=== PATIENT | female | born 1995 | race Caucasian/White ===

== ENCOUNTER 2017-01-16 09:57 | Emergency (ER) | payer OTHER ==
[~2017-01-16] VITALS: Ht 165.1 cm; Wt 85.7 kg
[~2017-01-16 09:57] MED LIST: HYDR-971 PO
[2017-01-16 10:00] VITALS: BP 123/54
--- NOTE | 2017-01-16 10:46 | ED.ADGEN ---
Past History Past Medical History: Anxiety, Other Past Surgical History: No Surgical History Smoking: Non-smoker Alcohol Use: None Drug Use: None Adult General HPI HPI Patient is a 21-year-old female presents emergency department complaining of one -week history of sore throat. She has had associated congestion and rhinorrhea. She denies any fevers or chills. She is been using [id number] medications with moderate relief. Review of Systems Review of Systems Constitutional: Denies fever or chills [] Eyes: Denies change in visual acuity, redness, or eye pain [] HENT: Denies nasal congestion or sore throat [] Respiratory: Denies cough or shortness of breath [] Cardiovascular: No additional information not addressed in HPI [] GI: Denies abdominal pain, nausea, vomiting, bloody stools or diarrhea [] : Denies dysuria or hematuria [] Musculoskeletal: Denies back pain or joint pain [] Integument: Denies rash or skin lesions [] Neurologic: Denies headache, focal weakness or sensory changes [] Endocrine: Denies polyuria or polydipsia [] Allergies Allergies Allergies Coded Allergies Type Severity Reaction Last Updated Verified guaifenesin Allergy Severe Hives 02/23/16 Yes Physical Exam Physical Exam Constitutional: Well developed, well nourished, no acute distress, non-toxic appearance. [] HENT: Normocephalic, atraumatic, bilateral external ears normal, oropharynx moist, bilateral tonsils are erythematous with no oral exudates, nose normal. [] Eyes: PERRLA, EOMI, conjunctiva normal, no discharge. [] Neck: Normal range of motion, no tenderness, supple, no stridor. [] Cardiovascular:Heart rate regular rhythm, no murmur [] Lungs & Thorax: Bilateral breath sounds clear to auscultation [] Abdomen: Bowel sounds normal, soft, no tenderness, no masses, no pulsatile masses. [] Skin: Warm, dry, no erythema, no rash. [] Extremities: No tenderness, no cyanosis, no clubbing, ROM intact, no edema. [] Neurologic: Alert and oriented X 3, normal motor function, normal sensory function, no focal deficits noted. [] Psychologic: Affect normal, judgement normal, mood normal. [] Current Patient Data Vital Signs Vital Signs Date Time Temp Pulse Resp B/P Pulse Ox O2 Delivery O2 Flow Rate FiO2 01/16/17 10:00 98.4 18 18 98 Room Air EKG EKG [] Radiology/Procedures Radiology/Procedures [] Course & Med Decision Making Course & Med Decision Making Pertinent Labs and Imaging studies reviewed. (See chart for details) Negative rapid strep. Patient was instructed to continue with her supportive care follow-up with her doctor as needed. [] Final Impression Final Impression Pharyngitis [] Problems: Dragon Disclaimer Dragon Disclaimer This electronic medical record was generated, in whole or in part, using a voice recognition dictation system. BOBO HARRIS MD Jan 16, 2017 10:46
== END 2017-01-16 10:39 | disposition home or self-care (01) ==
LOC: ER 09:57
DX: J02.9 Acute pharyngitis, unspecified (principal); Z88.8 Allergy status to other drugs, medicaments and biological substances
CPT/HCPCS: 87070; 87880; 99283

== ENCOUNTER → 2017-04-09 | Outpatient (CLI) | payer OTHER ==
--- NOTE | 2017-04-09 13:53 | RAD ---
Indication right groin pain. Targeted ultrasound of the right groin was performed. There is modest adenopathy in the groin. Largest lymph node measures approximately 2.3 cm in greatest dimension. The morphologic appearance of the nodes is normal. IMPRESSION: Mild adenopathy right groin
== END | disposition home or self-care (01) ==
LOC: US 12:47
PROVIDERS: ATTEND Nurse Practitioner Family
DX: R59.1 Generalized enlarged lymph nodes (principal); R10.31 Right lower quadrant pain
CPT/HCPCS: 76881

== ENCOUNTER → 2017-05-29 | Outpatient (CLI) | payer OTHER ==
[2017-06-01 19:08] LABS: ALTERNARIA 0.11 kU/L (Class 0/I); ASH <0.10 kU/L (Class 0); ASPERGILLUS 0.16 kU/L (Class 0/I); BARLEY 0.12 kU/L (Class 0/I); BERMUDA <0.10 kU/L (Class 0); CASHEW 0.34 kU/L (Class I); CAT DANDER 0.13 kU/L (Class 0/I); CHICKEN 0.13 kU/L (Class 0/I); CHOCOLATE <0.10 kU/L (Class 0); CLADOSPORIUM 0.13 kU/L (Class 0/I); COCKROACH 0.13 kU/L (Class 0/I); CODFISH <0.10 kU/L (Class 0); CORN <0.10 kU/L (Class 0); DUST MITE 0.11 kU/L (Class 0/I); EGG WHITE 0.44 kU/L (Class I); MAPLE 0.87 kU/L (Class II); MILK 0.15 kU/L (Class 0/I); MOUNTAIN CEDAR <0.10 kU/L (Class 0); MULBERRY <0.10 kU/L (Class 0); NETTLE <0.10 kU/L (Class 0); OAK TREE <0.10 kU/L (Class 0); OAT <0.10 kU/L (Class 0); ORANGE <0.10 kU/L (Class 0); PEANUT <0.10 kU/L (Class 0); PENICILLIUM 0.11 kU/L (Class 0/I); PORK IGE <0.10 kU/L (Class 0); POTATO <0.10 kU/L (Class 0); RAST IGE 410 IU/mL (0-100); RUSSIAN THISTLE 0.11 kU/L (Class 0/I); SHEEP SORREL <0.10 kU/L (Class 0); SHORT RAGWEED <0.10 kU/L (Class 0); SHRIMP <0.10 kU/L (Class 0); SOYBEAN <0.10 kU/L (Class 0); TIMOTHY GRASS <0.10 kU/L (Class 0); TOMATO 3.46 kU/L (Class III); WALNUT <0.10 kU/L (Class 0); WHEAT 0.11 kU/L (Class 0/I); YEAST 0.22 kU/L (Class 0/I)
== END ==
LOC: LAB 09:44
PROVIDERS: ATTEND Nurse Practitioner Family
DX: L20.9 Atopic dermatitis, unspecified (principal)
CPT/HCPCS: 36415; 82784; 86001

== ENCOUNTER 2017-09-25 08:14 | Emergency (ER) | payer OTHER ==
[2017-09-25 08:20] VITALS: BP 140/62
--- NOTE | 2017-09-25 08:57 | PHYS DOC ---
Past History Past Medical History: Other Past Surgical History: No Surgical History Smoking: Non-smoker Alcohol Use: Occasionally Drug Use: None Adult General Chief Complaint Chief Complaint: COUGH HPI HPI Patient is a 22 year old F who presents with cough and nasal congestion. Estee states that her symptoms aren't present over the past 2-3 days. She describes her symptoms as gradual in onset and currently constant. She denies fever sweats or chills. She denies shortness of breath. She denies any other associated symptoms. Review of Systems Review of Systems Constitutional: Denies fever or chills [] Eyes: Denies change in visual acuity, redness, or eye pain [] HENT: Negative except history of present illness Respiratory: Denies cough or shortness of breath [] Cardiovascular: No additional information not addressed in HPI [] GI: Denies abdominal pain, nausea, vomiting, bloody stools or diarrhea [] : Denies dysuria or hematuria [] Musculoskeletal: Denies back pain or joint pain [] Integument: Denies rash or skin lesions [] Neurologic: Denies headache, focal weakness or sensory changes [] Endocrine: Denies polyuria or polydipsia [] All other systems were reviewed and found to be within normal limits, except as documented in this note. Family History Family History No pertinent family history reported Current Medications Current Medications Medications were reviewed Allergies Allergies Allergies Coded Allergies Type Severity Reaction Last Updated Verified guaifenesin Allergy Severe Hives 02/23/16 Yes Physical Exam Physical Exam Constitutional: Well developed, well nourished, no acute distress, non-toxic appearance. [] HENT: Normocephalic, atraumatic, bilateral external ears normal, oropharynx moist, no oral exudates, mild nasal turbinate edema with mild mucous noted in bilateral nares Eyes: EOMI, conjunctiva normal, no discharge. [] Neck: Normal range of motion, no tenderness, supple, no stridor. [] Cardiovascular:Heart rate regular rhythm, Lungs & Thorax: Bilateral breath sounds clear to auscultation [] Abdomen: Bowel sounds normal, soft, no tenderness, no masses, no pulsatile masses. [] Skin: Warm, dry, no erythema, no rash. [] Back: No tenderness, no CVA tenderness. [] Extremities: No tenderness, no cyanosis, no clubbing, ROM intact, no edema. [] Neurologic: Alert and oriented X 3, normal motor function, normal sensory function, no focal deficits noted. [] Psychologic: Affect normal, judgement normal, mood normal. [] Current Patient Data Vital Signs Vital Signs Date Time Temp Pulse Resp B/P (MAP) Pulse Ox O2 Delivery O2 Flow Rate FiO2 09/25/17 08:20 98.8 90 16 98 Room Air EKG EKG [] Radiology/Procedures Radiology/Procedures [] Course & Med Decision Making Course & Med Decision Making Pertinent Labs and Imaging studies reviewed. (See chart for details) [] Dragon Disclaimer Dragon Disclaimer This electronic medical record was generated, in whole or in part, using a voice recognition dictation system. Departure Departure: Impression: Primary Impression: Upper respiratory infection Disposition: HOME, SELF-CARE Condition: STABLE Referrals: SHERYL BROOKS APRN (PCP) Patient Instructions: Upper Respiratory Infection, Adult Additional Instructions: Estee was seen in the emergency department for cough and congestion. No emergency medical condition was found on history or physical exam. Her symptoms are most consistent with an upper respiratory infection. She is advised to use nasal saline rinses regularly and nasal steroid spray. She is advised follow- up with her primary care doctor in the next week for further management. Problem Qualifiers Primary Impression: Upper respiratory infection URI type: unspecified viral URI Qualified Codes: J06.9 - Acute upper respiratory infection, unspecified; B97.89 - Other viral agents as the cause of diseases classified elsewhere KEITH GOMEZ MD Sep 25, 2017 08:57
== END 2017-09-25 09:00 | disposition home or self-care (01) ==
LOC: ER 08:14
DX: J06.9 Acute upper respiratory infection, unspecified (principal); Z88.8 Allergy status to other drugs, medicaments and biological substances
CPT/HCPCS: 99281

== ENCOUNTER → 2017-10-17 | Outpatient (CLI) | payer OTHER ==
[2017-09-25 08:20] VITALS: BP 140/62
--- NOTE | 2017-10-17 14:42 | RAD ---
Exam: Right calcaneus radiograph 10/17/2017 Indication: Brachial pain for one month Comparison: None available Technique: 3 views of the right calcaneus are provided. Findings: There is no acute fracture or dislocation. No joint space narrowing. No soft tissue swelling. No osseous erosion or soft tissue gas. Bone mineralization is within normal limits. Impression: No acute fracture or dislocation.
== END | disposition home or self-care (01) ==
LOC: RAD 14:07
PROVIDERS: ATTEND Nurse Practitioner Family
DX: M79.671 Pain in right foot (principal)
CPT/HCPCS: 73650

== ENCOUNTER 2018-02-15 23:03 | Emergency (ER) | payer OTHER ==
[~2018-02-15] VITALS: Ht 165.1 cm; Wt 86.2 kg
--- NOTE | 2018-02-15 23:17 | ED.ADGEN ---
Past History Past Medical History: Other Past Surgical History: No Surgical History Smoking: Non-smoker Alcohol Use: Occasionally Drug Use: None Adult General Chief Complaint Chief Complaint " I felt this morning.. and hurt this shoulder.. and it been hurting all day... " HPI HPI Patient is a 22 year old female who presents with Rt. shoulder pain after fall on stairs. Pt. localizes pain in right shoulder blade , ac, deltoid area. Does have deltoid sensation. Distal neurovascular intact. Range of motion somewhat limited due to pain. Does have a large area of ecchymosis on posterior shoulder. No other injuries reported. Patient reports she is normally healthy. Patient is right-hand dominant Review of Systems Review of Systems Constitutional: Denies fever or chills [] Eyes: Denies change in visual acuity, redness, or eye pain [] HENT: Denies nasal congestion or sore throat [] Respiratory: Denies cough or shortness of breath [] Cardiovascular: No additional information not addressed in HPI [] GI: Denies abdominal pain, nausea, vomiting, bloody stools or diarrhea [] : Denies dysuria or hematuria [] Musculoskeletal: Denies back pain or joint pain []complaints of right shoulder pain Integument: Denies rash or skin lesions [] Neurologic: Denies headache, focal weakness or sensory changes [] Endocrine: Denies polyuria or polydipsia [] All other systems were reviewed and found to be within normal limits, except as documented in this note. Family History Family History Noncontributory Current Medications Current Medications See nursing for home meds Allergies Allergies Allergies Coded Allergies Type Severity Reaction Last Updated Verified guaifenesin Allergy Severe Hives 02/23/16 Yes Physical Exam Physical Exam Constitutional: Moderately acute distress, non-toxic appearance. [] HENT: Normocephalic, atraumatic, bilateral external ears normal, oropharynx moist, no oral exudates, nose normal. [] Eyes: PERRLA, EOMI, conjunctiva normal, no discharge. [] Neck: Normal range of motion, no tenderness, supple, no stridor. [] Cardiovascular:Heart rate regular rhythm, no murmur [] Lungs & Thorax: Bilateral breath sounds equal at apex on auscultation [] Abdomen: Bowel sounds normal, soft, no tenderness, no masses, no pulsatile masses. [] Obese Skin: Warm, dry, no erythema, no rash. [] Ecchymosis back in right shoulder Back: No tenderness, no CVA tenderness. [] Extremities: No tenderness, no cyanosis, no clubbing, ROM intact, no edema. [] Except findings in right shoulder Neurologic: Alert and oriented X 3, normal motor function, normal sensory function, no focal deficits noted. [] Psychologic: Affect anxious, judgement normal, mood normal. [] Current Patient Data Vital Signs Vital Signs Date Time Temp Pulse Resp B/P (MAP) Pulse Ox O2 Delivery O2 Flow Rate FiO2 02/16/18 00:30 90 16 137/79 (98) 99 Room Air 02/15/18 23:03 97.9 EKG EKG [] Radiology/Procedures Radiology/Procedures My interpretation of shoulder film shows obvious fracture dislocation. My interpretation chest x-ray shows no obvious fracture. No findings of pneumothorax.[] Course & Med Decision Making Course & Med Decision Making Pertinent Labs and Imaging studies reviewed. (See chart for details). Patient use ice packs when necessary. Wear sling. Take arm out of sling 4 times a day and do passive range of motion. After 3 days may start advancing range of motion in shoulder. Take Tylenol and ibuprofen for pain. May take Vicoprofen up 4 times a day for marked pain. Follow-up primary care. Consider follow-up orthopedics. Return if any concerns. [] Final Impression Final Impression 1. Rotator cuff injury 2. Contusion[] Problems: Dragon Disclaimer Dragon Disclaimer This electronic medical record was generated, in whole or in part, using a voice recognition dictation system. NABOR COOK MD Feb 15, 2018 23:17
[2018-02-16] MEDS ORDERED: HYDR-79 PO (00:13)
[2018-02-16 00:30] VITALS: BP 137/79
--- NOTE | 2018-02-16 08:09 | RAD ---
Chest, 2 views, 02/15/2018: History: Fall, upper chest and right shoulder pain The heart size and pulmonary vascularity are normal. No pulmonary infiltrates are seen. There is no evidence of pleural fluid or pneumothorax. IMPRESSION: No acute cardiopulmonary abnormality is detected. Right shoulder, 3 views, 02/15/2018: No fracture or dislocation is identified. The periarticular soft tissues are unremarkable. IMPRESSION: No acute right shoulder abnormality is detected.
== END 2018-02-16 00:33 | disposition home or self-care (01) ==
LOC: ER 23:03
DX: S46.091A Other injury of muscle(s) and tendon(s) of the rotator cuff of right shoulder, initial encounter (principal); Z88.8 Allergy status to other drugs, medicaments and biological substances; W10.8XXA Fall (on) (from) other stairs and steps, initial encounter; Y93.89 Activity, other specified; Y99.8 Other external cause status; Y92.89 Other specified places as the place of occurrence of the external cause
CPT/HCPCS: 71046; 73030; 99284

== ENCOUNTER 2019-05-24 16:19 | Emergency (ER) | payer OTHER ==
[~2019-05-24] VITALS: Ht 165.1 cm; Wt 97.5 kg
[~2019-05-24 16:19] MED LIST changes: +HYDR-1179 PO; +HYDR-3165 PO; -HYDR-971 PO
[2019-05-24 16:29] VITALS: BP 143/106
[2019-05-24] MEDS ORDERED: ACETAMINOPHEN 500 MG TABLET PO ONE (17:00)
[2019-05-24] MEDS ORDERED: ORPHENADRINE CITRATE 60 MG/2 ML VIAL. IM ONE (17:30)
[2019-05-24] MEDS ORDERED: KETOROLAC 60 MG/2 ML VIAL. IM ONE (17:30)
[2019-05-24] MEDS ORDERED: NAPR-683 PO (17:41)
[2019-05-24] MEDS ORDERED: CYCL-331 PO (17:41)
--- NOTE | 2019-05-24 17:42 | ED.ADGEN ---
Past History Past Medical History: No Pertinent History Past Surgical History: Other Smoking: Non-smoker Alcohol Use: Occasionally Drug Use: None Adult General Chief Complaint Chief Complaint Back pain HPI HPI Patient is a 23 year old female who presents with complaint of back pain. The patient states that she injured her back earlier this morning while lifting. She states that she was doing a squat exercises when she felt a pull in her low back. States that she is having pain and tightness on the left side of her lower back. States that this radiates towards the outer aspect of her left thigh. Denies pain or loss of feeling below the knee. When asked if she had any similar problems with her back in the past, the patient states "no." Of note on chart review, the patient was seen in the emergency department on October 19, 2016 for low back strain. At that time she also noted that she injured her low back while doing a squatting exercises at the gym. Patient was notified of this, then stated that she remembered that she may have hurt her back in the past. Denies any loss of bowel or bladder control, saddle last seizure, or foot drop. States that she took ibuprofen this morning with mild relief. Review of Systems Review of Systems Constitutional: Denies fever or chills [] Eyes: Denies change in visual acuity, redness, or eye pain [] HENT: Denies nasal congestion or sore throat [] Respiratory: Denies cough or shortness of breath [] Cardiovascular: Denies chest pain or edema[] GI: Denies abdominal pain, nausea, vomiting, bloody stools or diarrhea [] : Denies dysuria or hematuria [] Musculoskeletal: Back pain[] Integument: Denies rash or skin lesions [] Neurologic: Denies headache, focal weakness or sensory changes [] All other systems were reviewed and found to be within normal limits, except as documented in this note. Current Medications Current Medications Current Medications Medications (Trade) Dose Ordered Sig/Ilana Start Time Stop Time Status Last Admin Dose Admin Acetaminophen (Tylenol) 1,000 mg 1X ONCE 05/24/19 17:00 05/24/19 17:01 DC 05/24/19 17:14 1,000 MG Ketorolac Tromethamine (Toradol Im) 60 mg 1X ONCE 05/24/19 17:30 05/24/19 17:31 UNV Orphenadrine Citrate (Norflex) 60 mg 1X ONCE 05/24/19 17:30 05/24/19 17:31 UNV Allergies Allergies Allergies Coded Allergies Type Severity Reaction Last Updated Verified guaifenesin Allergy Severe Hives 02/23/16 Yes Penicillins Allergy Unknown 05/24/19 Yes Physical Exam Physical Exam Constitutional: Well developed, well nourished, no acute distress, non-toxic appearance. [] HENT: Normocephalic, atraumatic, bilateral external ears normal, oropharynx m oist, no oral exudates, nose normal. [] Eyes: PERRLA, EOMI, conjunctiva normal, no discharge. [] Neck: Normal range of motion, no tenderness, supple, no stridor. [] Cardiovascular:Heart rate regular rhythm, no murmur [] Lungs & Thorax: Bilateral breath sounds clear to auscultation [] Abdomen: Bowel sounds normal, soft, no tenderness, no masses, no pulsatile masses. [] Skin: Warm, dry, no erythema, no rash. [] Back: Lower lumbar paraspinous muscle tenderness along the left side of the low back, no midline tenderness, negative straight leg test, no CVA tenderness. [] Extremities: No tenderness, no cyanosis, no clubbing, ROM intact, no edema. [] Neurologic: Alert and oriented X 3, normal motor function, normal sensory function, no focal deficits noted. [] Current Patient Data Vital Signs Vital Signs Date Time Temp Pulse Resp B/P (MAP) Pulse Ox O2 Delivery O2 Flow Rate FiO2 05/24/19 16:29 97.9 83 16 97 Room Air Lab Results Laboratory Tests Test 05/24/19 17:06 POC Urine HCG, Qualitative hcg negative (Negative) EKG EKG Not performed[] Radiology/Procedures Radiology/Procedures Not performed[] Course & Med Decision Making Course & Med Decision Making Pertinent Labs and Imaging studies reviewed. (See chart for details) [] Final Impression Final Impression Patient displays no midline tenderness on exam. Given low mechanism of injury, spinal fracture is unlikely. X-rays not indicated at today's visit. The patient was treated with Tylenol, Norflex, and Toradol. Patient will be discharged with Flexeril and Naprosyn for continued outpatient therapy. Advised follow-up with primary doctor in the next 5 days for reevaluation and return to emergency department for any worsening symptoms per the patient was understanding and in agreement with treatment plan.[] Dragon Disclaimer Dragon Disclaimer This electronic medical record was generated, in whole or in part, using a voice recognition dictation system. Departure Departure: Impression: Primary Impression: Low back strain Qualified Codes: S39.012A - Strain of muscle, fascia and tendon of lower back, initial encounter Disposition: HOME, SELF-CARE Condition: IMPROVED Patient Instructions: Back Pain, Adult Additional Instructions: Follow-up with your primary doctor in the next 5-7 days for reevaluation. Return to the emergency department for any worsening symptoms. Scripts Naproxen (NAPROSYN) 500 Mg Tablet 1 TAB PO BID, #20 TAB 0 Refills Prov: MARGARET JARRELL MD 05/24/19 Cyclobenzaprine Hcl (CYCLOBENZAPRINE HCL) 10 Mg Tablet 1 TAB PO TID PRN for MUSCLE SPASMS, #30 TAB Prov: MARGARET JARRELL MD 05/24/19 MARGARET JARRELL MD May 24, 2019 17:42
== END 2019-05-24 17:52 | disposition home or self-care (01) ==
LOC: ER 16:19
DX: S39.012A Strain of muscle, fascia and tendon of lower back, initial encounter (principal); Z88.0 Allergy status to penicillin; Z88.8 Allergy status to other drugs, medicaments and biological substances; X50.9XXA Other and unspecified overexertion or strenuous movements or postures, initial encounter; Y93.B9 Activity, other involving muscle strengthening exercises; Y92.89 Other specified places as the place of occurrence of the external cause; Y99.8 Other external cause status
CPT/HCPCS: 81025; 96372; 99284; J1885; J2360

== ENCOUNTER 2019-11-26 19:44 | Emergency (ER) | payer SELFPAY ==
[~2019-11-26] VITALS: Ht 165.1 cm; Wt 95.5 kg
[~2019-11-26 19:44] MED LIST changes: +CYCL-331 PO; +NAPR-683 PO
[2019-11-26 19:46] VITALS: BP 134/83
--- NOTE | 2019-11-26 19:51 | PHYS DOC ---
Past History Past Medical History: No Pertinent History Past Surgical History: Other Smoking: Non-smoker Alcohol Use: Occasionally Drug Use: None Adult General Chief Complaint Chief Complaint: COUGH".. I ve been sick since last thursday.. the coughing will not quit.. he kicked me out of bed because he can't sleep.. I did get my flu shot this year..." HPI HPI Patient is a 24 year old female who presents with above hx and complaints of fe daniella, malaise, cough,.. Myalgia, arthralgia,.Patient normally healthy. Patient up-to-date with vaccinations. No recent travel. No specific ill contacts. Patient reports she is normally healthy. Follows with Dr. Carrion. Review of Systems Review of Systems Constitutional: History of fever or chills [] Eyes: Denies change in visual acuity, redness, or eye pain [] HENT: History of nasal congestion and sore throat [] Respiratory: History of nonproductive cough Cardiovascular: No additional information not addressed in HPI [] GI: Denies abdominal pain, nausea, vomiting, bloody stools or diarrhea [] : Denies dysuria or hematuria [] Musculoskeletal: Denies back pain or joint pain [] Integument: Denies rash or skin lesions [] Neurologic: Denies headache, focal weakness or sensory changes [] Endocrine: Denies polyuria or polydipsia [] All other systems were reviewed and found to be within normal limits, except as documented in this note. Family History Family History Noncontributory Current Medications Current Medications See nursing for home meds Allergies Allergies Allergies Coded Allergies Type Severity Reaction Last Updated Verified guaifenesin Allergy Severe Hives 02/23/16 Yes Penicillins Allergy Unknown 05/24/19 Yes Physical Exam Physical Exam Constitutional: Moderate acute distress, non-toxic appearance. [] HENT: Normocephalic, atraumatic, bilateral external ears normal, oropharynx moist, injected pharynx, no oral exudates, nose swollen turbinates and clear rhinorrhea] Eyes: PERRLA, EOMI, conjunctiva normal, no discharge. [] Neck: Normal range of motion, no tenderness, supple, no stridor. [] Cardiovascular:Heart rate regular rhythm, no murmur [] Lungs & Thorax: Bilateral breath sounds equal at apexes few scattered wheezes on auscultation [] Abdomen: Bowel sounds normal, soft, no tenderness, no masses, no pulsatile masses. [] Skin: Warm, dry, no erythema, no rash. [] Back: No tenderness, no CVA tenderness. [] Extremities: No tenderness, no cyanosis, no clubbing, ROM intact, no edema. [] No cording appreciated Neurologic: Alert and oriented X 3, normal motor function, normal sensory function, no focal deficits noted. [] Psychologic: Affect anxious, judgement normal, mood normal. [] EKG EKG [][place] [address] IMAGING REPORT Signed PATIENT: ISA FLORES ACCOUNT: [id number] : 1995 LOCATION: ER AGE: 24 SEX: F EXAM STATUS: REG ER ORD. PHYSICIAN: NABOR COOK MD REASON: cough PROCEDURE: CHEST PA & LATERAL Exam: Chest 2 views INDICATION: Cough TECHNIQUE: Frontal and lateral views the chest Comparisons: None FINDINGS: The cardiomediastinal silhouette and pulmonary vessels are within normal limits. The lung and pleural spaces are clear. IMPRESSION: No acute cardiopulmonary process. Electronically signed by: Matilda Davalos MD (11/26/2019 8:45 PM) [id number] DICTATED AND SIGNED BY: MATILDA DAVALOS MD DATE: 11/26/192044 CC: NABOR COOK MD; SHERYL BROOKS APRN ~ Radiology/Procedures Radiology/Procedures [][address] [address] IMAGING REPORT Signed PATIENT: ISA FLORES ACCOUNT: [id number] : 1995 LOCATION: ER AGE: 24 SEX: F EXAM STATUS: REG ER ORD. PHYSICIAN: NABOR COOK MD REASON: cough PROCEDURE: CHEST PA & LATERAL Exam: Chest 2 views INDICATION: Cough TECHNIQUE: Frontal and lateral views the chest Comparisons: None FINDINGS: The cardiomediastinal silhouette and pulmonary vessels are within normal limits. The lung and pleural spaces are clear. IMPRESSION: No acute cardiopulmonary process. Electronically signed by: Matilda Davalos MD (11/26/2019 8:45 PM) [id number] DICTATED AND SIGNED BY: MATILDA DAVALOS MD DATE: 11/26/192044 CC: NABOR COOK MD; SHERYL BROOKS APRN ~ Course & Med Decision Making Course & Med Decision Making Pertinent Labs and Imaging studies reviewed. (See chart for details) Continue push fluids. I rest. Tylenol and ibuprofen for discomfort. Prednisone 50 mg a day. Use MDI 2 puffs 4 times a day. Benadryl 50 mg up 4 times a day for active cough and drainage. Follow-up primary care. Return if any concerns. Impression: 1. Viral syndrome 2. Bronchitis [] Dragon Disclaimer Dragon Disclaimer This electronic medical record was generated, in whole or in part, using a voice recognition dictation system. Departure Departure: Disposition: 01 HOME/RESIDENCE PRIOR TO ADM Condition: STABLE Referrals: SHERYL BROOKS APRN (PCP) Scripts Prednisone (PREDNISONE) 50 Mg Tablet 50 MG PO DAILY for cough, reactive airway for 5 Days, #5 TAB Prov: NABOR COOK MD 11/26/19 Dragon Disclaimer This chart was dictated in whole or in part using Voice Recognition software in a busy, high-work load, and often noisy Emergency Department environment. It may contain unintended and wholly unrecognized errors or omissions. NABOR COOK MD Nov 26, 2019 19:50
[2019-11-26] MEDS: predniSONE 10 MG TABLET PO ONE ×2 (20:00→21:33)
[2019-11-26] MEDS ORDERED: ALBUTEROL SULFATE 8GM INHALER. INH ONE (20:00)
--- NOTE | 2019-11-26 20:48 | RAD ---
Exam: Chest 2 views INDICATION: Cough TECHNIQUE: Frontal and lateral views the chest Comparisons: None FINDINGS: The cardiomediastinal silhouette and pulmonary vessels are within normal limits. The lung and pleural spaces are clear. IMPRESSION: No acute cardiopulmonary process. Electronically signed by: Matilda Dejesus MD (11/26/2019 8:45 PM) [id number]
[2019-11-26 20:52] LABS: INFLUENZA A PATIENT NEGATIVE (NEGATIVE)
[2019-11-26 20:53] LABS: INFLUENZA B PATIENT NEGATIVE (NEGATIVE)
[2019-11-26] MEDS ORDERED: PRED50TA PO (21:04)
[2019-11-26 21:33] LABS: BARBITURATES NEG (NEG); BENZODIAZEPINES NEG (NEG); CANNABINOIDS NEG (NEG); COCAINE NEG (NEG); METHADONE NEG (NEG); OPIATES NEG (NEG); PHENCYCLIDINE NEG (NEG)
[2019-11-26 21:36] LABS: AMPHETAMINE/METHAMPHETAMINE NEG (NEG)
[2019-11-26 21:51] LABS: BILIRUBIN,URINE NEG (NEG); CLARITY,URINE CLEAR; COLOR,URINE YELLOW; GLUCOSE,URINE NEG (NEG); NITRITE,URINE NEG (NEG); UROBILINOGEN,URINE 0.2 mg/dL (0.2 mg/dL)
[2019-11-26 21:52] LABS: BACTERIA,URINE FEW /HPF (0-FEW); RBC,URINE OCC /HPF (0-2); SQUAMOUS EPITHELIAL CELL,UR OCC /LPF; WBC,URINE OCC /HPF (0-4)
== END 2019-11-26 21:35 | disposition home or self-care (01) ==
LOC: ER 19:44
DX: B34.9 Viral infection, unspecified (principal); J40 Bronchitis, not specified as acute or chronic; Z88.0 Allergy status to penicillin; Z88.8 Allergy status to other drugs, medicaments and biological substances
CPT/HCPCS: 36415; 71046; 80307; 81001; 81025; 87070; 87804; 87880; 99285; J7512; J7613

== ENCOUNTER 2019-12-04 21:12 | Emergency (ER) | payer OTHER ==
[~2019-12-04] VITALS: Ht 165.1 cm; Wt 101.3 kg
[~2019-12-04 21:12] MED LIST changes: +PRED50TA PO
--- NOTE | 2019-12-04 21:51 | PHYS DOC ---
Past History Past Medical History: No Pertinent History Past Surgical History: Other Smoking: Non-smoker Alcohol Use: Occasionally Drug Use: None Adult General Chief Complaint Chief Complaint: ".. I ve been coughing non-stop.. I was here last sat... and started me on inhaler... and I seen my primary... 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 Patient reports persistent nonproductive cough. Patient seen previously on Thursday and started on prednisone and MDI. Patient did follow up with her primary Vanesarenee. She denies any recent travel or history immunosuppression. Is in contact with sick patients. She did get flu vaccination this season. Review of Systems Review of Systems Constitutional: History of fever or chills [] Eyes: Denies change in visual acuity, redness, or eye pain [] HENT: History of nasal congestion and sore throat [] Respiratory: History cough Cardiovascular: No additional information not addressed in HPI [] GI: Denies abdominal pain, nausea, vomiting, bloody stools or diarrhea [] : Denies dysuria or hematuria [] Musculoskeletal: Denies back pain or joint pain [] Integument: Denies rash or skin lesions [] Neurologic: Denies headache, focal weakness or sensory changes [] Endocrine: Denies polyuria or polydipsia [] All other systems were reviewed and found to be within normal limits, except as documented in this note. Family History Family History Noncontributory to presentation Current Medications Current Medications See nursing for home meds Allergies Allergies Allergies Coded Allergies Type Severity Reaction Last Updated Verified guaifenesin Allergy Severe Hives 02/23/16 Yes Penicillins Allergy Unknown 05/24/19 Yes Physical Exam Physical Exam Constitutional: Mild distress, non-toxic appearance. [] HENT: Normocephalic, atraumatic, bilateral external ears normal, oropharynx moist,with drainage and mild pharyngeal erythema, no oral exudates, nose swollen turbinates and clear rhinorrhea Eyes: PERRLA, EOMI, conjunctiva normal, no discharge. [] Neck: Normal range of motion, no tenderness, supple, no stridor. [] Cardiovascular:Heart rate regular rhythm, no murmur [] Lungs & Thorax: Bilateral breath sounds equal apex with scattered wheezes on auscultation [] Abdomen: Bowel sounds normal, soft, no tenderness, no masses, no pulsatile masses. Obese. Skin: Warm, dry, no erythema, no rash. [] Back: No tenderness, no CVA tenderness. [] Extremities: No tenderness, no cyanosis, no clubbing, ROM intact, no edema. [] No cording appreciated Neurologic: Alert and oriented X 3, normal motor function, normal sensory function, no focal deficits noted. [] Psychologic: Affect anxious, judgement normal, mood normal. [] EKG EKG [] Radiology/Procedures Radiology/Procedures My interpretation chest x-ray showssignificant pulmonary infiltrate or acute cardiopulmonary findings.[] Course & Med Decision Making Course & Med Decision Making Pertinent Labs and Imaging studies reviewed. (See chart for details) Patient take prednisone 50 mg a day for 5 days. Use MDI 2 puffs 4 times a day. Take Tylenol and ibuprofen for discomfort. Zofran 8 mg up to 4 times a day for active nausea and vomiting. Patient follow-up primary care. Patient return of any concerns. Continue MDI and Prednisone as directed. 1. Viral Syndrome 2. Viral Bronchitis [] Dragon Disclaimer Dragon Disclaimer This electronic medical record was generated, in whole or in part, using a voice recognition dictation system. Departure Departure: Disposition: 01 HOME/RESIDENCE PRIOR TO ADM Condition: STABLE Referrals: SHERYL BROOKS APRN (PCP) Scripts Ondansetron Hcl (ZOFRAN) 8 Mg Tablet 8 MG PO QIDPRN PRN for nv, #30 BOTTLE Prov: NABOR COOK MD 12/05/19 Prednisone (PREDNISONE) 50 Mg Tablet 50 MG PO DAILY for bronchitis for 5 Days, #5 TAB Prov: NABOR COOK MD 12/05/19 Sima Disclaimer This chart was dictated in whole or in part using Voice Recognition software in a busy, high-work load, and often noisy Emergency Department environment. It may contain unintended and wholly unrecognized errors or omissions. NABOR COOK MD Dec 04, 2019 21:51
[2019-12-04] MEDS ORDERED: ALBUTEROL SULFATE 8GM INHALER. INH ONE (22:00)
[2019-12-04] MEDS ORDERED: predniSONE 10 MG TABLET PO ONE (22:00)
[2019-12-04 23:19] LABS: BARBITURATES NEG (NEG); BENZODIAZEPINES NEG (NEG); CANNABINOIDS NEG (NEG); COCAINE NEG (NEG); METHADONE NEG (NEG); OPIATES NEG (NEG); PHENCYCLIDINE NEG (NEG)
[2019-12-04 23:21] LABS: BILIRUBIN,URINE NEG (NEG); CLARITY,URINE HAZY; COLOR,URINE YELLOW; GLUCOSE,URINE NEG (NEG)
[2019-12-04 23:22] LABS: BACTERIA,URINE 0 /HPF (0-FEW); NITRITE,URINE NEG (NEG); SQUAMOUS EPITHELIAL CELL,UR OCC /LPF; UROBILINOGEN,URINE 0.2 mg/dL (0.2 mg/dL)
[2019-12-04 23:27] LABS: AMPHETAMINE/METHAMPHETAMINE NEG (NEG)
[2019-12-04 23:37] LABS: INFLUENZA A PATIENT NEGATIVE (NEGATIVE); INFLUENZA B PATIENT NEGATIVE (NEGATIVE)
[2019-12-05 01:20] VITALS: BP 146/84
[2019-12-05] MEDS ORDERED: PRED50TA PO (01:38)
[2019-12-05] MEDS ORDERED: ONDA8TAB9 PO (01:44)
--- NOTE | 2019-12-05 07:52 | RAD ---
EXAM: CHEST PA LATERAL INDICATION: Dyspnea. TECHNIQUE: PA and lateral views COMPARISON: 11/26/2019 FINDINGS: The heart size is normal. The great vessels appear unremarkable. There is no hilar or mediastinal mass. The lungs are hypoventilatory but show no focal infiltrates. There is no pleural effusion or pneumothorax. There are no significant osseous abnormalities. IMPRESSION: Hypoventilatory chest showing no active cardiopulmonary disease. Electronically signed by: Jami Morgan MD (12/05/2019 7:49 AM) [id number]
== END 2019-12-05 01:20 | disposition home or self-care (01) ==
LOC: ER 21:12
DX: B34.9 Viral infection, unspecified (principal); J40 Bronchitis, not specified as acute or chronic; Z88.0 Allergy status to penicillin; Z88.8 Allergy status to other drugs, medicaments and biological substances
CPT/HCPCS: 36415; 71046; 80307; 81001; 81025; 87070; 87804; 87880; 99284; J7512; J7613

== ENCOUNTER → 2020-02-01 | Outpatient (CLI) | payer OTHER ==
[~2020-02-01] MED LIST changes: +ONDA8TAB9 PO
== END | disposition home or self-care (01) ==
LOC: LAB 12:29
PROVIDERS: ATTEND Internal Medicine Cardiovascular Disease
DX: R05 Cough (principal); R06.03 Acute respiratory distress; Z20.828 Contact with and (suspected) exposure to other viral communicable diseases
CPT/HCPCS: 87635

== ENCOUNTER 2021-03-30 22:06 | Emergency (ER) | payer BC, OTHER ==
[~2021-03-30] VITALS: Ht 165.1 cm; Wt 101.3 kg
[2021-03-30 22:25] VITALS: BP 147/77
--- NOTE | 2021-03-30 22:25 | PHYS DOC ---
Past History Past Medical History: No Pertinent History Past Surgical History: Other Smoking: Non-smoker Alcohol Use: None Drug Use: None Adult General Chief Complaint Chief Complaint: CHEST PAIN HPI HPI Patient is a 25-year-old female with a past medical history of anxiety who presents to the emergency department with a chief complaint of hypertension and racing heart. 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 Denies any headache, chest pain, shortness of breath, abdominal pain, nausea, vomiting, dysuria, hematuria or blood in the stool. Denies any history of coronary artery disease. Denies any recent traumas, travel, illnesses, fevers, Covid/flu symptoms. States she is otherwise eating and drinking normally for her. States he is making urine and stool normally for her. States that here in the emergency department she is asymptomatic. Denies any alcohol or drug use. Denies any dyspnea on exertion, orthopnea, PND or edema. Review of Systems Review of Systems Review of systems otherwise unremarkable except noted in HPI Allergies Allergies Allergies Coded Allergies Type Severity Reaction Last Updated Verified guaifenesin Allergy Severe Hives 02/23/16 Yes Penicillins Allergy Unknown 05/24/19 Yes Physical Exam Physical Exam Constitutional: Well developed, well nourished, no acute distress, non-toxic appearance. [] HENT: Normocephalic, atraumatic, bilateral external ears normal, oropharynx moist, no oral exudates, nose normal. [] Eyes: conjunctiva normal, no discharge. [] Neck: Normal range of motion, no tenderness, supple, no stridor. [] Cardiovascular:Heart rate regular rhythm, no murmur [] Lungs & Thorax: Bilateral breath sounds clear to auscultation [] Abdomen: Bowel sounds normal, soft, no tenderness, no masses, no pulsatile masses. [] Skin: Warm, dry, no erythema, no rash. [] Extremities: No tenderness, no cyanosis, no clubbing, ROM intact, no edema. [] Neurologic: Alert and oriented X 3, normal motor function, normal sensory function, no focal deficits noted. [] Psychologic: Affect normal, judgement normal, mood normal. [] EKG EKG [] Radiology/Procedures Radiology/Procedures [] Heart Score C/O Chest Pain: No HEART Score for Chest Pain: HEART Score for Chest Pain Response (Comments) Value History Slighlty/Non-Suspicious 0 ECG Normal 0 Age < 45 0 Risk Factors No Risk Factors 0 Total 0 Risk Factors: Risk Factors: DM, Current or recent (<one month) smoker, HTN, HLP, family history of CAD, obesity. Risk Scores: Risk Factors: DM, Current or recent (<one month) smoker, HTN, HLP, family history of CAD, obesity. Course & Med Decision Making Course & Med Decision Making Patient is a 25-year-old female with a past medical history of anxiety who presents with a chief complaint of hypertension at work and feeling her heartbeat fast Vital signs not concerning. Physical exam noted above. EKG noted above and normal. No noted risk factors other than being overweight for cardiovascular disease. No family history of HI or strokes at her age. Denies any alcohol or drug use. Patient asymptomatic in the ED. Discussed all findings with family and gave reassurance. Chest x-ray not concerning. Gave copy of EKG and advised to follow-up with her primary care physician. Gave strict return precautions to the ED. Family grateful, verbalized understanding and agreed with plan of discharge. [] Dragon Disclaimer Dragon Disclaimer This electronic medical record was generated, in whole or in part, using a voice recognition dictation system. Departure Departure: Impression: Primary Impression: Hypertension Additional Impression: Racing heart beat Disposition: HOME / SELF CARE / HOMELESS Condition: GOOD Referrals: SHERYL BROOKS APRN (PCP) Patient Instructions: Hypertension, Nonspecific Tachycardia Additional Instructions: Thank you for coming into the emergency department today and allowing us to take care of you. You look well, your vital signs were normal, your chest x-ray was normal and your EKG was normal. You are given a copy of your EKG for your records. Please follow-up Thursday with your primary care physician to discuss your ED visit and set up a follow-up as soon as you can. Please come back to the emergency department immediately with new or concerning symptoms as discus sed Problem Qualifiers IRENE GUERRERO MD Mar 30, 2021 22:25
--- NOTE | 2021-03-30 22:57 | RAD ---
Exam: Chest one view INDICATION: Chest pain TECHNIQUE: Frontal view of the chest Comparisons: 12/05/2019 FINDINGS: The cardiomediastinal silhouette and pulmonary vessels are within normal limits. The lung and pleural spaces are clear. IMPRESSION: No acute cardiopulmonary process. Electronically signed by: Matilda Dejesus MD (03/30/2021 10:55 PM) [email or web address]
--- NOTE | 2021-03-31 02:46 | EKG ---
[address] [address] Test Date: 2021-03-30 Test Time: 22:24:24 Pat Name: ISA ROSA Department: Room: Gender: F [employer]: : [id number] Requested By: IRENE GUERRERO Order Number: [id number] Reading MD: Measurements Intervals [place] Rate: 85 P: 0 VA: 156 QRS: 11 QRSD: 78 T: 28 QT: 368 QTc: 438 Interpretive Statements SINUS RHYTHM NORMAL ECG RI6.02 No previous ECG available for comparison
== END 2021-03-30 22:57 | disposition home or self-care (01) ==
LOC: ER 22:06
DX: I10 Essential (primary) hypertension (principal); R00.0 Tachycardia, unspecified; Z88.0 Allergy status to penicillin
CPT/HCPCS: 71045; 93005; 99283-25